=== PATIENT | male | born 1985 | race Caucasian/White ===

== ENCOUNTER 2019-01-19 20:31 | Emergency (ER) | payer SELFPAY ==
[2019-01-19] MEDS ORDERED: HYDROcodone 7.5MG/APAP 325MG 1 EA TAB PO ONE ×2 (20:39→22:51)
--- NOTE | 2019-01-19 21:09 | RAD ---
EXAM: XR Right Elbow, 2 Views CLINICAL HISTORY: The patient is 33 years old and is Male; fall from 8 ft TECHNIQUE: Frontal and lateral views of the right elbow. COMPARISON: No relevant prior studies available. FINDINGS: BONES/JOINTS: Unremarkable. No acute fracture. No dislocation. SOFT TISSUES: Unremarkable. IMPRESSION: Normal right elbow radiographs. Electronically signed by: Yanet Argueta MD 01/19/2019 9:07 PM CDT
--- NOTE | 2019-01-19 21:15 | RAD ---
EXAM: XR Right Ankle, 2 Views CLINICAL HISTORY: The patient is 33 years old and is Male; fall from 8 ft TECHNIQUE: Frontal and lateral views of the right ankle. COMPARISON: No relevant prior studies available. FINDINGS: BONES/JOINTS: Irregularity of the talus is present. No dislocation. SOFT TISSUES: Diffuse soft tissue swelling about the ankle is present. IMPRESSION: Diffuse soft tissue swelling about the ankle. Irregularity of the talus is noted concerning for fracture. However, further evaluation with CT may be useful. Electronically signed by: Yanet Argueta MD 01/19/2019 9:13 PM CDT
--- NOTE | 2019-01-19 21:16 | RAD ---
EXAM: XR Right Forearm, 2 Views CLINICAL HISTORY: The patient is 33 years old and is Male; fall from 8 ft TECHNIQUE: Frontal and lateral views of the right forearm. COMPARISON: No relevant prior studies available. FINDINGS: BONES/JOINTS: Unremarkable. No acute fracture. No dislocation. SOFT TISSUES: Unremarkable. IMPRESSION: Normal right forearm radiographs. Electronically signed by: Yanet Argueta MD 01/19/2019 9:13 PM CDT
--- NOTE | 2019-01-19 21:21 | RAD ---
EXAM: XR Right Tibia and Fibula, 2 Views CLINICAL HISTORY: The patient is 33 years old and is Male; fall from 8 ft TECHNIQUE: Frontal and lateral views of the right tibia and fibula. COMPARISON: No relevant prior studies available. FINDINGS: BONES/JOINTS: Unremarkable. No acute fracture. No dislocation. SOFT TISSUES: Unremarkable. No radiopaque foreign body. IMPRESSION: Normal right tibia and fibula radiographs. Electronically signed by: Yanet Argueta MD 01/19/2019 9:19 PM CDT
--- NOTE | 2019-01-19 21:22 | RAD ---
EXAM: XR Right Foot Complete, 3 or More Views CLINICAL HISTORY: The patient is 33 years old and is Male; fall from 8 ft TECHNIQUE: Frontal, lateral and oblique views of the right foot. COMPARISON: No relevant prior studies available. FINDINGS: BONES/JOINTS: Irregularity of the talus is redemonstrated. No definite fracture. No dislocation. SOFT TISSUES: Diffuse soft tissue swelling of the foot is present. No radiopaque foreign body. IMPRESSION: Diffuse soft tissue swelling with suggestion of irregularity of the talus. Further evaluation with CT may be useful. Electronically signed by: Yanet Argueta MD 01/19/2019 9:20 PM CDT
--- NOTE | 2019-01-19 22:22 | CT ---
EXAM DESCRIPTION: CT Right Lower Extremity CLINICAL HISTORY: 33 years Male suspected talus fracture TECHNIQUE: Noncontrast axial images acquired through the right ankle and foot. Coronal and sagittal reformatted images also provided. This CT exam was performed according to our departmental dose-optimization program, which includes one or more of the following dose reduction techniques: automated exposure control, adjustment of the mA and/or kV according to patient size, and/or use of iterative reconstruction technique. COMPARISON: Comparison is made to the radiographs obtained earlier the same day. FINDINGS: There is diffuse soft tissue swelling about the right ankle extending over the dorsum of the right foot. There are small subcutaneous hematomas lateral and anterolateral to the ankle joint. No soft tissue gas or foreign body. There are tiny curvilinear, ossific avulsion fractures along the dorsal, anterior margin of the talar neck and at the posterior margin of the talus. There is a comminuted, impacted fracture at the medial aspect of the talar neck. This includes a single fracture line which approaches the anteroinferior articular surface of the talar head without definite extension to the talonavicular joint. There is a well-corticated ossific focus anterior to the tip of the fibula, chronic in appearance. No other acute fracture. No dislocation. Small ankle joint effusion. No visualized myotendinous avulsion. The talar dome is preserved. IMPRESSION: Diffuse soft tissue swelling about the right ankle extending over the dorsum of the right foot. Subcutaneous hematomas anterolateral and lateral to the ankle joint. Anterior/dorsal and posterior talar avulsion fractures consistent with a capsular injury. Small ankle joint effusion. Comminuted, impacted fracture of the medial aspect of the talar neck. There is a single fracture line which approaches but does not definitely extend to the talonavicular joint. No dislocation. Remote injury anterior to the tip of the fibula. Electronically signed by: Grace Garza MD 01/19/2019 10:20 PM CDT
--- NOTE | 2019-01-19 22:53 | ED.PDOC ---
History of Present Illness - General Chief Complaint: Lower Extremity Injury Stated Complaint: fell off ladder, right ankle right arm pain Time Seen by Provider: 01/19/19 20:38 Source: patient Exam Limitations: no limitations - History of Present Illness Initial Comments: The patient is a 33-r-old male presenting to the emergency rom after having fallen off a ladder about r 4 hours ago from 8 feet high. He landed essentially on his right side and has pain primarily on his right side. He has pain in the right elbow along with the right ankle and foot. He has an abrasion and bruise to his left inner leg. He has good range of motion and strength of the right arm. He does have some tenderness about the elbow but no deformity. No crepitus. Normal active and passive range of motion. The foot has significant bruising to it. The calcaneus is nontender. The medial and lateral malleoli are not tender. The distal foot is not tender. Pulses are palpable. He is able to wiggle his toes. sensation appears to be preserved. Timing/Duration: 4-6 hours Severity: moderate Improving Factors: immobilization Worsening Factors: movement Associated Symptoms: denies symptoms Allergies/Adverse Reactions: Allergies benadryl cream Adverse Reaction (Uncoded 01/19/19 20:40) Home Medications: Ambulatory Orders Tramadol HCl 50 mg PO Q8HR PRN #60 tab 01/19/19 Review of Systems - Review of Systems Constitutional: States: no symptoms reported EENTM: States: no symptoms reported Respiratory: States: no symptoms reported Cardiology: States: no symptoms reported Gastrointestinal/Abdominal: States: no symptoms reported Genitourinary: States: no symptoms reported Musculoskeletal: States: see HPI Skin: States: see HPI Neurological: States: other - the patient has a little bit of tingling to his right hand but no objective sensory loss. No strength loss. Endocrine: States: no symptoms reported All other Systems: No Change from Baseline Past Medical History (General) - Patient Medical History Hx Seizures: No Hx Stroke: No Hx Dementia: No Hx Asthma: No Hx of COPD: No Hx Cardiac Disorders: No Hx Congestive Heart Failure: No Hx Pacemaker: No Hx Hypertension: No Hx Thyroid Disease: No Hx Diabetes: No Hx Gastroesophageal Reflux: No Hx Renal Disease: No Hx Cancer: No Hx of HIV: No Hx Hepatitis C: No Hx MRSA: No Surgical History: no surgical history - Vaccination History Hx Tetanus, Diphtheria Vaccination: Yes - date unknown Hx Influenza Vaccination: No Hx Pneumococcal Vaccination: No Immunizations Up to Date: No - Social History Hx Tobacco Use: Yes Hx Chewing Tobacco Use: No Hx Alcohol Use: Yes - 1-2 daily Hx Substance Use: No Hx Substance Use Treatment: No Hx Depression: No Feels Threatened In Home Enviroment: No Feels Threatened In a Relationship: No Hx Physical Abuse: No Hx Emotional Abuse: No Hx Suspected Abuse: No - Female History Patient is a Female of Child Bearing Age (10 -59 yrs old): No Patient : No Family Medical History - Family History Mother Family History: No Known Living Status: Still Living Hx Family Asthma: No Physical Exam - Physical Exam General Appearance: Alert, Other - obviously uncomfortable Eye Exam: bilateral normal Ears, Nose, Throat: hearing grossly normal, normal ENT inspection, normal pharynx Neck: full range of motion, supple Respiratory: lungs clear, normal breath sounds, no respiratory distress, no accessory muscle use Cardiovascular/Chest: normal peripheral pulses, regular rate, rhythm, no edema Peripheral Pulses: radial,right: 2+, radial,left: 2+, dorsalis pedis,right: 2+, dorsalis pedis,left: 2+, posterior tibialis,right: 2+, posterior tibialis,left: 2+ Gastrointestinal/Abdominal: non tender, soft Rectal Exam: deferred Back Exam: no CVA tenderness, no vertebral tenderness Extremity: no calf tenderness, normal capillary refill, other - see history of present illness Neurologic: ski maker II-XII nml as tested, alert, normal mood/affect, oriented x 3 Skin Exam: normal color - with the exception of the bruising to the right foot and the bruising and abrasion to the left medial leg Comments: Vital Signs - 24 hr 01/19/19 01/19/19 20:41 21:30 Temperature 98 F 98.7 F Pulse Rate [ 98 H 90 Left Radial] Respiratory 20 20 Rate Blood Pressure 131/72 117/69 [Left Arm] O2 Sat by Pulse 98 94 L Oximetry Progress - Progress Progress: 01/19/19 22:56 the patient's 33-year-old male who presented after having fallen off of the ladder. X-rays of his upper and lower extremities on the right show no evidence of fracture with the exception of a talar fracture. Based on the CT scan it is essentially nondisplaced but comminuted. I do believe he will likely be able to avoid surgery if it will heal in its current position. He is going to be placed on crutches and in a walking boot for now. He will have to have a cast placed once the swelling is going down. He is not to put any weight on the foot even with the walking boot on. He is to follow-up with orthopedics before the weekend for a reevaluation and casting if appropriate at that time. He'll be written for tramadol for pain control. ER warnings were given. Keep routine follow-up with primary care doctor. - Results/Orders Results/Orders: x-rays of the right ankle, foot and tib-fib show questionable irregularity of the talus. No other fracture or dislocation. X-ray of the right elbow and forearm show no evidence of any acute trauma. CT scan of the right foot shows the injury to the talus. It is a comminuted fracture but essentially nondisplaced. Departure - Departure Clinical Impression: Talar fracture Qualifiers: Encounter type: initial encounter Fracture type: closed Talus location: neck Fracture alignment: nondisplaced Laterality: right Qualified Code(s): S92.114A - Nondisplaced fracture of neck of right talus, initial encounter for closed fracture Disposition: Discharge to Home or Self Care Condition: Fair Departure Forms: ED Discharge - Pt. Copy, Patient Portal Self Enrollment Instructions: Foot Fracture (DC) Diet: regular diet Activity: no pushing/pulling with affected limb Prescriptions: Tramadol HCl 50 mg PO Q8HR PRN #60 tab PRN Reason: Moderate Pain Home Medications: Ambulatory Orders Tramadol HCl 50 mg PO Q8HR PRN #60 tab 01/19/19 Additional Instructions: the patient's 33-year-old male who presented after having fallen off of the ladder. X-rays of his upper and lower extremities on the right show no evidence of fracture with the exception of a talar fracture. Based on the CT scan it is essentially nondisplaced but comminuted. I do believe he will likely be able to avoid surgery if it will heal in its current position. He is going to be placed on crutches and in a walking boot for now. He will have to have a cast placed once the swelling is going down. He is not to put any weight on the foot even with the walking boot on. He is to follow-up with orthopedics before the weekend for a reevaluation and casting if appropriate at that time. He'll be written for tramadol for pain control. ER warnings were given. Keep routine follow-up with primary care doctor.
[2019-01-20 00:14] VITALS: BP 111/69; TEMP 97.9; O2SAT 98
== END 2019-01-19 23:35 | disposition home or self-care (01) ==
LOC: ER 20:31
DX: S92.114A Nondisplaced fracture of neck of right talus, initial encounter for closed fracture (principal); S90.31XA Contusion of right foot, initial encounter; S80.812A Abrasion, left lower leg, initial encounter; M25.521 Pain in right elbow; R20.8 Other disturbances of skin sensation; Z87.891 Personal history of nicotine dependence; W11.XXXA Fall on and from ladder, initial encounter; Y92.9 Unspecified place or not applicable

== ENCOUNTER → 2019-03-14 | Outpatient (CLI) | payer OTHER ==
--- NOTE | 2019-03-14 09:34 | RAD ---
EXAM DESCRIPTION: Foot,Right 3 Views CLINICAL HISTORY: 33 years, Male, S92.101D COMPARISON: Right foot x-rays February 10, 2019 TECHNIQUE: AP, lateral, and oblique views of the right foot FINDINGS: Tiny avulsed fragments of the anterior and posterior talus seen on lateral view with mild soft tissue swelling. No significant change in alignment. Prominent plantar calcaneal spur. IMPRESSION: No change in the appearance of anterior and posterior talar avulsion fractures. Electronically signed by: Kevin Phelps MD 03/14/2019 9:32 AM CDT
--- NOTE | 2019-03-14 09:37 | RAD ---
EXAM DESCRIPTION: Ankle,Right 3 Views CLINICAL HISTORY: 33 years, Male, S92.101D COMPARISON: Previous x-rays right ankle February 10, 2019 TECHNIQUE: AP/lateral/oblique of the right ankle FINDINGS: Intact medial and lateral malleolus. There is no soft tissue swelling laterally or medially. Intact proximal metatarsals. Intact dome of the talus. Lateral view shows small avulsed fragments anterior and posterior to the talus unchanged in alignment compared to previous. Small plantar calcaneal enthesophyte. IMPRESSION: No change in the appearance of the talar avulsion fractures. Plantar calcaneal spurring. Electronically signed by: Kevin Phelps MD 03/14/2019 9:35 AM CDT
== END ==
LOC: RAD 07:59
PROVIDERS: ATTEND Orthopaedic Surgery
DX: S92.101D Unspecified fracture of right talus, subsequent encounter for fracture with routine healing (principal); M77.31 Calcaneal spur, right foot